=== PATIENT | male | born 1995 | race Caucasian/White ===

== ENCOUNTER 2018-12-05 18:35 | Inpatient (IN) | payer OTHER ==
[~2018-12-05] VITALS: Ht 170.2 cm; Wt 63.2 kg
[2018-12-05] MEDS ORDERED: HYDR-643 PO (18:41)
[2018-12-05] MEDS ORDERED: LEXA1TAB2 PO (18:41)
[2018-12-05 19:36] LABS: HEMATOCRIT 41.1 % (42.0-52.0); HEMOGLOBIN 14.5 g/dl (13.5-17.5); MEAN CORPUSCULAR HEMOGLOBIN 30.3 pg (27.0-33.0); MEAN CORPUSCULAR HGB CONC 35.3 g/dl (32.0-36.5); PLATELET COUNT, AUTOMATED 226 10^3/uL (150-450); RED BLOOD COUNT 4.78 10^6/uL (4.30-6.10); WHITE BLOOD COUNT 6.6 10^3/uL (4.0-10.0)
[2018-12-05 20:00] LABS: AMPHETAMINES LEVEL URINE NEGATIVE (NEGATIVE); BARBITURATES URINE NEGATIVE (NEGATIVE); BENZODIAZEPINES URINE NEGATIVE (NEGATIVE); CANNABINOIDS URINE NEGATIVE (NEGATIVE); COCAINE METABOLITE URINE NEGATIVE (NEGATIVE); METHADONE URINE NEGATIVE (NEGATIVE); OPIATES URINE NEGATIVE (NEGATIVE); PHENCYCLIDINE URINE NEGATIVE (NEGATIVE)
[2018-12-05 20:06] LABS: ACETAMINOPHEN LEVEL < 2.0 UG/ML (10.0-30.0); ALBUMIN 3.9 GM/DL (3.2-5.2); ALT/SGPT 43 U/L (12-78); BILIRUBIN,DIRECT 0.1 MG/DL (0.0-0.2); BILIRUBIN,TOTAL 0.3 MG/DL (0.2-1.0); BLOOD UREA NITROGEN 12 MG/DL (7-18); CALCIUM LEVEL 8.5 MG/DL (8.5-10.1); CARBON DIOXIDE LEVEL 31 MEQ/L (21-32); CHLORIDE LEVEL 105 MEQ/L (98-107); ETHYL ALCOHOL (ETHANOL) < 0.003 % (0.000-0.010); GLOMERULAR FILTRATION RATE > 60.0 (>60); GLUCOSE, FASTING 97 MG/DL (70-100); POTASSIUM SERUM 4.4 MEQ/L (3.5-5.1); SALICYLATE LEVEL < 1.7 MG/DL (5.0-30.0); SODIUM LEVEL 140 MEQ/L (136-145); TOTAL PROTEIN 7.1 GM/DL (6.4-8.2)
[2018-12-05] MEDS ORDERED: MAALOX 30 ML SUSP *UDC PO PRN (21:00)
[2018-12-05] MEDS ORDERED: ACETAMINOPHEN TAB 650MG DOSE (2X325MG) PO PRN (21:00)
[2018-12-05] MEDS ORDERED: MOM 30ML SUSPENSION UDC PO PRN (21:00)
[2018-12-05 22:42] VITALS: BP 130/81
[2018-12-06 06:54] VITALS: BP 122/64
--- NOTE | 2018-12-06 10:14 | HPEPDOC ---
General Date of Admission Dec 05, 2018 at 20:50 Date of Service: Dec 06, 2018 Attending Physician: FELIPE DEL RIO MD Chief Complaint The patient is a 23-year-old male admitted with a reason for visit of MHE. Source: RN/ History of Present Illness Divya is a 23 year old AD male, admitted to inpatient psych unit on account of feeling overwhelmed by multiple domestic stressors. He has no other underlying medical history. On assessment, he denies chest pain, shortness of breath, weakness, abdominal pain, nausea, vomiting, diarrhea. Two weeks ago patient fell, fall was mechanical, but he did sustain pain to his upper back and right ankle. He complains of upper back pain and right ankle pain Home Medications Scheduled Escitalopram Oxalate (Lexapro) 20 Mg Tablet, 20 MG PO DAILY, (Reported) Hydroxyzine HCl (Hydroxyzine HCl) 10 Mg Tablet, 10 MG PO QHS, (Reported) Allergies Coded Allergies: No Known Allergies (Unverified , 12/05/18) Past Medical History Medical History Right shoulder bursitis Insomnia Surgical History Denies A-FIB/CHADSVASC A-FIB History Current/History of A-Fib/PAF?: No Current PO Anticoag Therapy: No Review of Systems Other systems A 10 point pertinent review of systems was completed, negative except as stated in history of presenting illness Physical Examination Other physical findings GENERAL: NAD SKIN : Warm, dry intact HEENT: Atraumatic, normocephalic, PERRL, moist mucous membrane CARDIOVASCULAR: Regular rate and rhythm, bianca, S1S2, no JVD, no edema, distal pulses + palpable RESP: CTAB, no accessory muscle use noted ABDOMEN: BS+ non distended non tender MS: no joint deformities NEURO: Alert and oriented x 3, CN2-12 grossly intact PSYCH: no anxiety or agitation, appropriate mood and affect. Vital Signs Vital Signs Date Time Temp Pulse Resp B/P (MAP) Pulse Ox O2 Delivery O2 Flow Rate FiO2 12/06/18 06:54 98.0 70 14 122/64 (83) 12/05/18 22:42 100 12/05/18 18:35 Room Air Laboratory Data Labs 24H Laboratory Tests 2 12/05/18 19:25: Nucleated Red Blood Cells % (auto) 0.0, Anion Gap 4L, Glomerular Filtration Rate > 60.0, Calcium Level 8.5, Aspartate Amino Transf (AST/SGOT) 31, Alanine Aminotransferase (ALT/SGPT) 43, Alkaline Phosphatase 95, Total Bilirubin 0.3, Direct Bilirubin 0.1, Total Protein 7.1, Albumin 3.9, Albumin/Globulin Ratio 1.22, Thyroid Stimulating Hormone (TSH) 1.570, Salicylates Level < 1.7L, Urine Amphetamines Screen NEGATIVE, Urine Benzodiazepines Screen NEGATIVE, Urine Opiates Screen NEGATIVE, Urine Methadone Screen NEGATIVE, Acetaminophen Level < 2.0L, Urine Barbiturates Screen NEGATIVE, Urine Phencyclidine Screen NEGATIVE, Urine Cocaine Metabolite Screen NEGATIVE, Urine Cannabinoids Screen NEGATIVE, Ethyl Alcohol Level < 0.003 CBC/BMP Laboratory Tests 12/05/18 19:25 Red Blood Count 4.78, Mean Corpuscular Volume 86.0, Mean Corpuscular Hemoglobin 30.3, Mean Corpuscular Hemoglobin Concent 35.3, Red Cell Distribution Width 12.1 Assessment/Plan Cervical strain -ibuprofen as needed -C-spine x-ray Right ankle pain -Ibuprofen as needed -xray right ankle Plan / VTE VTE Prophylaxis Ordered?: No VTE Exclusion Mechanical Proph: Low Risk for VTE BECKY KUMAR PHOTOGRAPH TINTER Dec 06, 2018 10:14
[2018-12-06] MEDS ORDERED: CYCLOBENZAPRINE 5MG TABLET PO PRN (10:15)
--- NOTE | 2018-12-06 11:21 | REP ---
CERVICAL SPINE, SEVEN VIEWS: HISTORY: Back pain. The cervical spine is visualized from C1 to the C6-7 level in the lateral radiographs. There is no acute fracture of subluxation. The intervertebral discs are normal in height. The neural foramina are patent. IMPRESSION: There is no acute fracture or subluxation. Electronically Signed by Frantz Galeas MD 12/06/2018 11:45 A
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
[2018-12-06 18:18] VITALS: BP 113/61
[2018-12-06] MEDS: traZODone 50 MG TAB PO PRN (21:14)
--- NOTE | 2018-12-07 04:49 | REP ---
Clinical: Right ankle pain . Technique: AP, lateral views of the right ankle. Findings: No acute fracture or dislocation. Skeletal structures and joint spaces are intact and normal. Ankle mortise appears stable. No subcutaneous emphysema or radiodense foreign body. Impression: Normal age-appropriate right ankle radiograph series. Electronically Signed by Herbert Krishnamurthy MD 12/07/2018 04:40 A
[2018-12-07 06:37] VITALS: BP 122/57
[2018-12-07] MEDS: IBUPROFEN 600 MG TAB PO PRN (08:12)
--- NOTE | 2018-12-07 08:12 | IPNPDOC ---
Text Note Date of Service The patient was seen on 12/07/18. NOTE Subjective: Complains of significant ongoing right shoulder pain, denies nausea, vomiting, abdominal pain or chest pain. Objective GENERAL: NAD SKIN : Warm, dry intact HEENT: Atraumatic, normocephalic, PERRL, moist mucous membrane CARDIOVASCULAR: Regular rate and rhythm, bianca, S1S2, no JVD, no edema, distal pulses + palpable RESP: CTAB, no accessory muscle use noted ABDOMEN: BS+ non distended non tender MS: tenderness with right shoulder ROM, no joint deformities NEURO: Alert and oriented x 3, CN2-12 grossly intact PSYCH: no anxiety or agitation, appropriate mood and affect. Assessment/Plan Cervical strain -ibuprofen and flexeril as needed -C-spine x-ray engative for acute process Right ankle pain -continue flexeril and Ibuprofen as needed -xray right ankle negative for acute process Thoracis spine pain -x-ray thoracic spine -follow findings VS,Fishbone, I+O VS, Fishbone, I+O Vital Signs Date Time Temp Pulse Resp B/P (MAP) Pulse Ox O2 Delivery O2 Flow Rate FiO2 12/07/18 06:37 98.8 55 12 122/57 (78) 12/05/18 22:42 100 12/05/18 18:35 Room Air BECKY KUMAR Dec 07, 2018 08:12
[2018-12-07] MEDS ORDERED: ESCITALOPRAM OXALATE 10 MG TAB (LEXAPRO) PO ONE ×2 (10:30→11:00)
[2018-12-07] MEDS ORDERED: hydrOXYzine 25 MG TAB PO PRN (10:30)
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
[2018-12-07 18:00] VITALS: BP 118/61
[2018-12-07] MEDS: traZODone 50 MG TAB PO PRN (20:25)
[2018-12-08 06:36] VITALS: BP 94/63
--- NOTE | 2018-12-08 07:36 | REP ---
THORACIC SPINE: Four views of the thoracic spine performed in the AP and lateral projections. There is no compression fracture. There is normal alignment and thoracic kyphosis. Disc spaces are well preserved. Posterior elements are intact. IMPRESSION: No fracture or significant degenerative change. Electronically Signed by Shiva Varner MD 12/09/2018 12:16 A
[2018-12-08] MEDS: ESCITALOPRAM OXALATE 10 MG TAB (LEXAPRO) PO SCH (08:17)
[2018-12-08] MEDS ORDERED: ESCITALOPRAM OXALATE 10 MG TAB (LEXAPRO) PO SCH (09:00)
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
[2018-12-08] MEDS: IBUPROFEN 600 MG TAB PO PRN (12:26)
[2018-12-08 18:00] VITALS: BP 127/69
[2018-12-08] MEDS: traZODone 50 MG TAB PO PRN (20:27)
[2018-12-09 06:28] VITALS: BP 104/55
[2018-12-09] MEDS: ESCITALOPRAM OXALATE 10 MG TAB (LEXAPRO) PO SCH (08:33)
[2018-12-09] MEDS ORDERED: TRAZ-252 PO (09:00)
[2018-12-09] MEDS ORDERED: LEXA1TAB2 PO (09:00)
[2018-12-09] MEDS ORDERED: HYDR-3363 PO (09:00)
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
== END 2018-12-09 11:40 | disposition home or self-care (01) | DRG 882 ==
LOC: M ED 18:35 → M ED INP 20:50 → M PSY 21:54
PROVIDERS: ADMIT Psychiatry & Neurology Psychiatry; ATTEND Psychiatry & Neurology Psychiatry
DX: F43.23 Adjustment disorder with mixed anxiety and depressed mood (principal); F10.10 Alcohol abuse, uncomplicated; Z76.5 Malingerer [conscious simulation]; G47.00 Insomnia, unspecified; Z79.899 Other long term (current) drug therapy

== ENCOUNTER 2018-12-17 17:22 | Emergency (ER) | payer OTHER ==
[~2018-12-17] VITALS: Ht 170.2 cm; Wt 62.3 kg
[~2018-12-17 17:22] MED LIST: HYDR-3363 PO; HYDR-643 PO; LEXA1TAB2 PO; TRAZ-252 PO
[2018-12-17] MEDS ORDERED: IBUP-1114 PO (17:42)
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
[2018-12-17] MEDS ORDERED: KETOROLAC TROMETHAMINE 10 MG TAB PO ONE (21:45)
[2018-12-17 22:10] VITALS: BP 113/68
[2018-12-17] MEDS ORDERED: KETO10TAB PO (22:38)
[2018-12-17] MEDS ORDERED: CYCL5TAB PO (22:38)
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
== END 2018-12-17 22:51 | disposition home or self-care (01) ==
LOC: M ED 17:22
DX: S50.01XA Contusion of right elbow, initial encounter (principal); S29.012A Strain of muscle and tendon of back wall of thorax, initial encounter; V49.59XA Passenger injured in collision with other motor vehicles in traffic accident, initial encounter; Y92.410 Unspecified street and highway as the place of occurrence of the external cause; F33.9 Major depressive disorder, recurrent, unspecified; F41.9 Anxiety disorder, unspecified; Z79.899 Other long term (current) drug therapy

== ENCOUNTER 2019-02-13 18:32 | Emergency (ER) | payer OTHER ==
[~2019-02-13] VITALS: Ht 175.3 cm; Wt 65.7 kg
[~2019-02-13 18:32] MED LIST changes: +CYCL5TAB PO; +IBUP-1114 PO; +KETO10TAB PO
[2019-02-13 19:09] LABS: HEMATOCRIT 42.6 % (42.0-52.0); HEMOGLOBIN 15.5 g/dl (13.5-17.5); MEAN CORPUSCULAR HEMOGLOBIN 31.6 pg (27.0-33.0); MEAN CORPUSCULAR HGB CONC 36.4 g/dl (32.0-36.5); MEAN CORPUSCULAR VOLUME 86.8 fl (80.0-96.0); PLATELET COUNT, AUTOMATED 188 10^3/uL (150-450); RED BLOOD COUNT 4.91 10^6/uL (4.30-6.10); WHITE BLOOD COUNT 8.2 10^3/uL (4.0-10.0)
[2019-02-13 19:50] LABS: ACETAMINOPHEN LEVEL < 2.0 UG/ML (10.0-30.0); ALBUMIN 4.1 GM/DL (3.2-5.2); ALT/SGPT 33 U/L (12-78); BILIRUBIN,DIRECT 0.1 MG/DL (0.0-0.2); BILIRUBIN,TOTAL 0.3 MG/DL (0.2-1.0); BLOOD UREA NITROGEN 10 MG/DL (7-18); CALCIUM LEVEL 8.4 MG/DL (8.5-10.1); CARBON DIOXIDE LEVEL 29 MEQ/L (21-32); CHLORIDE LEVEL 106 MEQ/L (98-107); CREATININE FOR GFR 1.21 MG/DL (0.70-1.30); ETHYL ALCOHOL (ETHANOL) < 0.003 % (0.000-0.010); GLOMERULAR FILTRATION RATE > 60.0 (>60); GLUCOSE, FASTING 107 MG/DL (70-100); POTASSIUM SERUM 3.7 MEQ/L (3.5-5.1); SALICYLATE LEVEL < 1.7 MG/DL (5.0-30.0); SODIUM LEVEL 140 MEQ/L (136-145); TOTAL PROTEIN 6.8 GM/DL (6.4-8.2)
[2019-02-13 20:02] LABS: AMPHETAMINES LEVEL URINE NEGATIVE (NEGATIVE); BARBITURATES URINE NEGATIVE (NEGATIVE); BENZODIAZEPINES URINE NEGATIVE (NEGATIVE); CANNABINOIDS URINE NEGATIVE (NEGATIVE); COCAINE METABOLITE URINE NEGATIVE (NEGATIVE); METHADONE URINE NEGATIVE (NEGATIVE); OPIATES URINE NEGATIVE (NEGATIVE); PHENCYCLIDINE URINE NEGATIVE (NEGATIVE)
[2019-02-13 20:36] VITALS: BP 143/82
== END 2019-02-13 20:44 | disposition home or self-care (01) ==
LOC: M ED 18:32
DX: F39 Unspecified mood [affective] disorder (principal); F41.9 Anxiety disorder, unspecified; M54.9 Dorsalgia, unspecified; Z79.899 Other long term (current) drug therapy
CPT/HCPCS: 80048; 80076; 80307; 84443; 85027; 99284; G0480